=== PATIENT | female | born 1935 | race Caucasian/White ===

== ENCOUNTER 2022-11-08 21:59 | Emergency (ER) | payer OTHER ==
[~2022-11-08] VITALS: Ht 165.1 cm; Wt 52.2 kg
[2022-11-08 22:00] VITALS: BP_SYST 120
--- NOTE | 2022-11-08 22:00 | NUR ---
Patient triaged and placed in waiting room. VSS and patient appears in no acute distress at this time. Accompanied by daughter, awaiting available bed, and MD notified of need for MSE.
--- NOTE | 2022-11-08 23:15 | NUR ---
Patient to ER bed 3 to gown for evaluation. Side rails up. Report given to Lilli MCNEAL(reg).
--- NOTE | 2022-11-08 23:32 | NUR ---
PATIENT SITTING UP IN BED AWAITING MD EXAM, NO S/S OF ANY DISTRESS NOTED AT THIS TIME. INFORMED OF PLAN OF CARE, REMAINS ON MONITOR WILL CONTINUE TO WATCH.
[2022-11-09] MEDS ORDERED: MORPHINE 4 MG INJ. 4 MG/ML VIAL IM ONE (01:15)
[2022-11-09] MEDS ORDERED: ONDANSETRON HCL 4 MG/2 ML VIAL IVP ONE (01:45)
[2022-11-09] MEDS ORDERED: MORPHINE 4 MG INJ. 4 MG/ML VIAL IVP ONE (01:45)
--- NOTE | 2022-11-09 02:08 | NUR ---
PATIENT HAS BEEN MEDICATED PER ORDER, FAMILY WAS AT BEDSIDE UPDATED ON PLAN OF CARE.
--- NOTE | 2022-11-09 02:17 | NUR ---
MD AT BEDSIDE TALKING WITH FAMILY ABOUT PLAN OF CARE, 2ND #20G ESTABLISHED IN LEFT AC AREA.
--- NOTE | 2022-11-09 02:25 | NUR ---
PATIENT PLACED ON 4L OF O2 VIA NASAL CANULA FOR DECREASED O2 SAT, NORMAL SALINE 1000CC BOLUS INFUSING PER ORDER, FAMILY IS AWARE OF PLAN TO TRANSFER PATIENT OUT.
[2022-11-09 02:31] LABS: ANION GAP 11 (5-15); CHLORIDE 109 mmol/L (98-107); CREATININE 1.65 mg/dL (0.55-1.30); GLUCOSE 255 mg/dL (70-99); UREA NITROGEN, BLOOD 40 mg/dL (8-21)
--- NOTE | 2022-11-09 02:49 | NUR ---
1ST UNIT OF BLOOD INFUSING AT THIS TIME.
[2022-11-09 03:00] LABS: BASOPHILS # (AUTO) 0.2 K/uL (0.0-0.2); BASOPHILS % (AUTO) 0.6 % (0.0-2.0); EOSINOPHILS % (AUTO) 0.1 % (0.0-4.0); HEMATOCRIT 36.7 % (36-48); HEMOGLOBIN 11.5 g/dL (12.0-16.0); LYMPHOCYTES # (AUTO) 2.1 K/uL (1.0-5.5); LYMPHOCYTES % (AUTO) 7.3 % (20.5-51.5); MEAN CORPUSCULAR HEMOGLOBIN 26 pg (27-31); MEAN CORPUSCULAR HGB CONC 31 % (32-36); MEAN CORPUSCULAR VOLUME 82 fL (79.0-98.0); MONOCYTES # (AUTO) 1.7 K/uL (0.0-1.0); MONOCYTES % (AUTO) 5.9 % (1.7-9.3); NEUTROPHILS # (AUTO) 24.7 K/uL (1.8-7.7); NEUTROPHILS % (AUTO) 86.1 % (40.0-70.0); PLATELET COUNT (AUTO) 400 K/uL (130-430); RED BLOOD CELL COUNT(AUTO) 4.48 MIL/uL (4.2-6.2); RED CELL DISTRIBUTION WIDTH 16.3 % (9.0-15.0); WHITE BLOOD COUNT (AUTO) 28.6 K/uL (4.8-10.8)
--- NOTE | 2022-11-09 03:08 | NUR ---
BEDSIDE EKG IN PROGRESS.
[2022-11-09 03:23] LABS: PROTHROMBIN TIME 10.1 SECS (9.5-12.5)
--- NOTE | 2022-11-09 03:24 | NUR ---
RIGHT ARM SALINE LOCK INFILTRATED, ANOTHER 20G ESTABLISHED AT THIS TIME. IV NORMAL SALINE BACK TO INFUSING PER ORDER. BLOOD CONTINUES TO INFUSE WITHOUT ANY S/S OF REACTION.
[2022-11-09] MEDS ORDERED: KCL 20 mEq in 100 mL (PREMIX) 100 ML IV ONE (03:30)
[2022-11-09] MEDS ORDERED: fentaNYL CITRATE/PF 100 MCG/2 ML AMP ONE (03:50)
[2022-11-09] MEDS ORDERED: fentaNYL CITRATE/PF 100 MCG/2 ML AMP IVP ONE (04:00)
[2022-11-09 04:02] VITALS: BP_SYST 110
--- NOTE | 2022-11-09 04:04 | NUR ---
BLOOD IS COMPLETE, SALINE BOLUS COMPLETE AND PATIENT WAS MEDICATED WITH 50MCG OF FENTANYL PRIOR TO TRANSFER. TRANSPORT ARRIVED,PATIENT PLACED ON GURNEY, REMAINS STABLE FOR TRANSPORT. REPORT WAS GIVEN TO SB ACCEPTING NURSE.
== END 2022-11-09 04:10 | disposition short-term general hospital (02) ==
LOC: SED 21:59
DX: I71.30 Abdominal aortic aneurysm, ruptured, unspecified (principal); I10 Essential (primary) hypertension; R10.9 Unspecified abdominal pain; M54.50 Low back pain, unspecified; Z79.899 Other long term (current) drug therapy
CPT/HCPCS: 99291; 80048; 85025; 85610; 85730; 86886; 86900; 86901; 36415; 74176; 96374; 96375; 76376; P9021; J2405; J3010; J2270